=== PATIENT | male | born 1970 | race Caucasian/White ===

== ENCOUNTER 2024-03-06 17:15 | Inpatient (IN) | payer MEDICAID ==
[~2024-03-06] VITALS: Ht 167.6 cm; Wt 71.7 kg
[2024-03-06 17:19] VITALS: O2SAT 99
[2024-03-06] MEDS: PIPERACILLIN/TAZO 3.375G/50ML 50 ML IV ONE (19:04)
[2024-03-06] MEDS: SODIUM CHLORIDE 0.9% 1000ML BAG (SEPSIS BOLUS) IV ONE (19:04)
[2024-03-06 19:05] LABS: CHLORIDE 90 mEq/L (98-107); POTASSIUM 5.1 mEq/L (3.5-5.1)
[2024-03-06 19:06] LABS: CALCIUM 8.6 mg/dL (8.7-10.4); CARBON DIOXIDE 24 mEq/L (21-32)
[2024-03-06 19:07] LABS: BASOPHILS % 0.4 % (0.0-2.0); EOSINOPHILS % 0.3 % (0.0-5.0); HEMATOCRIT. 30.9 % (42.0-52.0); HEMOGLOBIN. 10.2 g/dL (14.0-18.0); LYMPHOCYTES % 13.1 % (20.0-50.0); MEAN CORPUSCULAR HEMOGLOBIN 29.3 pg (28.0-32.0); MEAN CORPUSCULAR HGB CONC 32.9 g/dL (31.0-37.0); MEAN PLATELET VOLUME 8.8 fl (7.4-10.4); MONOCYTES % 7.1 % (2.0-8.0); NEUTROPHILS % 79.1 % (40.0-76.0); PLATELET 352 x1000/uL (130-400); RED BLOOD CELL COUNT 3.47 mill/uL (4.7-6.1); RED CELL DISTRIBUTION WIDTH 12.5 % (11.6-14.6); WHITE BLOOD COUNT 11.6 x1000/uL (4.5-11.0)
[2024-03-06 19:09] LABS: INR 0.9; PROTHROMBIN TIME 10.3 sec (9.6-11.0)
[2024-03-06 19:11] LABS: CREATININE 1.3 mg/dL (0.6-1.3); UREA NITROGEN BLOOD 15 mg/dL (9-23)
[2024-03-06 19:13] LABS: ALANINE AMINOTRANSFERASE 8 IU/L (10-49); ALBUMIN 4.2 g/dL (3.2-4.8); ASPARTATE AMINOTRANSFERASE 12 IU/L (<34); BILIRUBIN TOTAL 0.4 mg/dL (0.1-1.0); PHOSPHORUS 2.2 mg/dL (2.5-4.9); PROTEIN TOTAL 7.9 g/dL (6.0-8.3)
[2024-03-06 19:17] LABS: CLARITY URINE CLEAR (CLEAR); COLOR URINE YELLOW (YELLOW); GLUCOSE URINE 3+ (NEGATIVE); KETONES URINE NEGATIVE (NEGATIVE); LEUKOCYTE ESTERASE URINE NEGATIVE (NEGATIVE); NITRITE URINE NEGATIVE (NEGATIVE); OCCULT BLOOD URINE NEGATIVE (NEGATIVE); PROTEIN URINE NEGATIVE (NEGATIVE); SPECIFIC GRAVITY URINE 1.023 (1.005-1.030); UROBILINOGEN URINE 0.2 E.U./dL (0.2-1.0)
[2024-03-06] MEDS: ONDANSETRON HCL 4MG/2ML INJ IV ONE (19:17)
[2024-03-06] MEDS: MORPHINE SULFATE 4 MG/ML INJ (FOR IV/IM USE) IV ONE (19:17)
[2024-03-06 19:20] LABS: GLUCOSE > 700 mg/dL (70-105); SODIUM 119 mEq/L (136-145)
[2024-03-06 19:34] LABS: BETA HYDROXYBUTYRATE 0.1 mMol/L (0.0-0.3)
[2024-03-06 19:40] LABS: BACTERIA URINE NONE SEEN; RBC URINE NONE SEEN /hpf (0-2); SQUAMOUS EPITHELIAL CELL URINE RARE /lpf (RARE/1+)
[2024-03-06 19:41] LABS: WBC URINE 0-2 /hpf (0-2)
[2024-03-06] MEDS ORDERED: LACTATED RINGERS 1,000 ML IV SCH ×2 (19:45)
[2024-03-06] MEDS: VANCOMYCIN 1G PREMIX 200 ML IV ONE (21:23)
[2024-03-06] MEDS: INSULIN LISPRO 100 UNITS/ML SUBCUT ONE (21:25)
[2024-03-06] MEDS: INSULIN GLARGINE 100 UNITS/ML SUBCUT ONE (21:26)
[2024-03-06] MEDS: LACTATED RINGERS 1,000 ML IV SCH ×2 (22:05→22:06)
[2024-03-06] MEDS ORDERED: DEXTROSE 50% WATER 50ML SYRINGE IV PRN (22:30)
[2024-03-06] MEDS: ASPIRIN 81MG TABLET PO SCH (23:44)
[2024-03-06] MEDS: SODIUM CHLORIDE 0.9% 1,000 ML IV SCH (23:44)
[2024-03-07 00:43] LABS: CARBON DIOXIDE 28 mEq/L (21-32); CHLORIDE 98 mEq/L (98-107); SODIUM 130 mEq/L (136-145)
[2024-03-07 00:44] LABS: CALCIUM 8.2 mg/dL (8.7-10.4)
[2024-03-07 00:49] LABS: UREA NITROGEN BLOOD 12 mg/dL (9-23)
[2024-03-07 00:51] LABS: PHOSPHORUS 2.2 mg/dL (2.5-4.9)
[2024-03-07 00:53] LABS: GLUCOSE 315 mg/dL (70-105)
[2024-03-07] MEDS: SODIUM PHOSPHATE 15 MMOL in DEXT 5% WATER 245 ML IV NR (01:08)
[2024-03-07 03:01] VITALS: BP 96/51; PULSE 86; RESP 17; TEMP 98.8
[2024-03-07 05:00] VITALS: BP 125/60; PULSE 88; RESP 20; TEMP 98
[2024-03-07] MEDS: PIPERACILLIN/TAZO 3.375G/50ML 50 ML IV SCH (06:05)
[2024-03-07] MEDS: BLOOD SUGAR DIAGNOSTIC STRIP TEST SCH (06:47)
[2024-03-07] MEDS: INSULIN LISPRO 100 UNITS/ML SUBCUT SCH ×2 (07:01→16:50)
[2024-03-07 08:00] VITALS: BP 114/68; PULSE 82; RESP 18; TEMP 98.3
[2024-03-07] MEDS ORDERED: VANCOMYCIN 1GM/200ML PMX (BAXTER) IV SCH (09:00)
[2024-03-07] MEDS: ENOXAPARIN 40MG/0.4ML SYR SUBCUT SCH (09:07)
[2024-03-07] MEDS: MAGNESIUM 2 G PREMIX 50 ML IV NR (09:24)
[2024-03-07] MEDS ORDERED: VANCOMYCIN 750MG/150ML IV SCH (10:00)
[2024-03-07] MEDS: VANCOMYCIN 1GM/200ML PMX (BAXTER) IV SCH (11:20)
[2024-03-07 11:27] LABS: OSMOLALITY URINE 447 mOsm/kg (500-850)
[2024-03-07 11:31] LABS: SODIUM URINE RANDOM 47 mEq/L
[2024-03-07 12:00] VITALS: BP 110/64; PULSE 85; RESP 18; TEMP 98.2
[2024-03-07 13:03] LABS: CARBON DIOXIDE 26 mEq/L (21-32); CHLORIDE 102 mEq/L (98-107); SODIUM 136 mEq/L (136-145)
[2024-03-07 13:04] LABS: CARBON DIOXIDE 26 mEq/L (21-32); CHLORIDE 102 mEq/L (98-107); SODIUM 135 mEq/L (136-145)
[2024-03-07 13:05] LABS: CALCIUM 8.4 mg/dL (8.7-10.4)
[2024-03-07 13:09] LABS: CREATININE 0.8 mg/dL (0.6-1.3); GLUCOSE 189 mg/dL (70-105)
[2024-03-07 13:10] LABS: CREATININE 0.8 mg/dL (0.6-1.3); GLUCOSE 189 mg/dL (70-105); UREA NITROGEN BLOOD 12 mg/dL (9-23)
[2024-03-07 13:12] LABS: PHOSPHORUS 3.4 mg/dL (2.5-4.9)
[2024-03-07 16:00] VITALS: BP 116/69; PULSE 82; RESP 18; TEMP 97.8
[2024-03-07 16:12] LABS: CHLORIDE 103 mEq/L (98-107); POTASSIUM 4.5 mEq/L (3.5-5.1); SODIUM 133 mEq/L (136-145)
[2024-03-07 16:13] LABS: CARBON DIOXIDE 24 mEq/L (21-32)
[2024-03-07 16:14] LABS: CALCIUM 8.2 mg/dL (8.7-10.4)
[2024-03-07 16:18] LABS: GLUCOSE 252 mg/dL (70-105); UREA NITROGEN BLOOD 10 mg/dL (9-23)
[2024-03-07 20:00] VITALS: BP 101/59; PULSE 95; RESP 20; TEMP 98.2
[2024-03-07 20:10] LABS: IRON 21 ug/dL (65-175)
[2024-03-07 20:15] LABS: FOLIC ACID (FOLATE) SERUM 16.14 ng/mL (>5.38)
[2024-03-07 20:16] LABS: FERRITIN 106 ng/mL (22-322); VITAMIN B12 SERUM 696 pg/mL (211-911)
[2024-03-07] MEDS: ATORVASTATIN CALCIUM 40MG TABLET PO SCH (21:13)
[2024-03-07] MEDS: INSULIN GLARGINE 100 UNITS/ML SUBCUT SCH (21:27)
[2024-03-07] MEDS ORDERED: IOHEXOL-350 100 ML BOTTLE ONE (23:51)
[2024-03-08] VITALS: BP 138/74; PULSE 86; RESP 18; TEMP 97.8
[2024-03-08] MEDS: KETOROLAC 30MG/ML VIAL IV NR (00:30)
[2024-03-08 04:00] VITALS: BP 127/69; PULSE 82; RESP 17; TEMP 97.6
[2024-03-08 12:00] VITALS: BP 121/71; PULSE 85; RESP 18; TEMP 97.3
[2024-03-08] MEDS: KETOROLAC 15MG/ML VIAL IV PRN (12:05)
[2024-03-08 16:00] VITALS: BP 116/75; PULSE 100; RESP 18; TEMP 97.8
[2024-03-08 16:28] LABS: CARBON DIOXIDE 25 mEq/L (21-32); CHLORIDE 103 mEq/L (98-107); POTASSIUM 4.8 mEq/L (3.5-5.1); SODIUM 133 mEq/L (136-145)
[2024-03-08 16:29] LABS: CALCIUM 9.8 mg/dL (8.7-10.4)
[2024-03-08 16:33] LABS: CREATININE 1.1 mg/dL (0.6-1.3)
[2024-03-08 16:34] LABS: GLUCOSE 210 mg/dL (70-105); UREA NITROGEN BLOOD 15 mg/dL (9-23)
[2024-03-08 16:35] LABS: ALANINE AMINOTRANSFERASE 10 IU/L (10-49)
[2024-03-08 16:36] LABS: ALBUMIN 3.8 g/dL (3.2-4.8); ASPARTATE AMINOTRANSFERASE 17 IU/L (<34); BILIRUBIN TOTAL 0.2 mg/dL (0.1-1.0); PROTEIN TOTAL 7.1 g/dL (6.0-8.3)
[2024-03-08 17:16] LABS: BASOPHILS % 0.8 % (0.0-2.0); HEMATOCRIT. 34.6 % (42.0-52.0); HEMOGLOBIN. 12.1 g/dL (14.0-18.0); LYMPHOCYTES % 17.5 % (20.0-50.0); MEAN CORPUSCULAR HEMOGLOBIN 30.5 pg (28.0-32.0); MEAN CORPUSCULAR HGB CONC 35.1 g/dL (31.0-37.0); MEAN CORPUSCULAR VOLUME 86.9 fL (80.0-94.0); MEAN PLATELET VOLUME 8.6 fl (7.4-10.4); MONOCYTES % 4.3 % (2.0-8.0); NEUTROPHILS % 76.4 % (40.0-76.0); PLATELET 421 x1000/uL (130-400); RED BLOOD CELL COUNT 3.98 mill/uL (4.7-6.1); RED CELL DISTRIBUTION WIDTH 12.5 % (11.6-14.6); WHITE BLOOD COUNT 8.8 x1000/uL (4.5-11.0)
[2024-03-08] MEDS: SODIUM HYPOCHLORITE SOLUTION (0.5%)FULL STRENGTH TOP SCH (18:00)
[2024-03-08 20:00] VITALS: BP 150/80; PULSE 88; RESP 18; TEMP 98
[2024-03-08] MEDS: INSULIN GLARGINE 100 UNITS/ML SUBCUT SCH (21:38)
[2024-03-09] VITALS: BP 132/71; PULSE 92; RESP 20; TEMP 97.1
[2024-03-09 04:00] VITALS: BP 102/58; PULSE 85; RESP 19; TEMP 98.1
[2024-03-09 08:00] VITALS: BP 118/76; PULSE 89; RESP 20; TEMP 99
[2024-03-09] MEDS ORDERED: FENTANYL CITRATE/PF 50MCG/ML 2ML VIAL ONE (11:44)
[2024-03-09] MEDS ORDERED: MIDAZOLAM HCL 2 MG/2 ML VIAL ONE (11:44)
[2024-03-09] MEDS ORDERED: HEPARIN 1000 UNITS/ML 10ML ONE (11:49)
[2024-03-09] MEDS ORDERED: LIDOCAINE HCL/PF 1% 10 MG/ML 5ML VIAL ONE (11:52)
[2024-03-09 12:10] LABS: HEMATOCRIT 28.9 % (42.0-52.0); HEMOGLOBIN 10.1 g/dL (14.0-18.0); MEAN CORPUSCULAR HEMOGLOBIN 30.8 pg (28.0-32.0); PLATELET 440 x1000/uL (130-400); RED BLOOD CELL COUNT 3.28 mill/uL (4.7-6.1); RED CELL DISTRIBUTION WIDTH 12.5 % (11.6-14.6); WHITE BLOOD COUNT 8.1 x1000/uL (4.5-11.0)
[2024-03-09 12:14] LABS: CHLORIDE 104 mEq/L (98-107); POTASSIUM 4.3 mEq/L (3.5-5.1); SODIUM 136 mEq/L (136-145)
[2024-03-09 12:15] LABS: CALCIUM 9.5 mg/dL (8.7-10.4); CARBON DIOXIDE 27 mEq/L (21-32)
[2024-03-09 12:20] LABS: CREATININE 0.8 mg/dL (0.6-1.3); GLUCOSE 122 mg/dL (70-105); UREA NITROGEN BLOOD 13 mg/dL (9-23)
[2024-03-09] MEDS ORDERED: LIDOCAINE HCL 1% 20ML VIAL (Pyxis) INJ ONE (12:40)
[2024-03-09 14:00] VITALS: BP 114/73; PULSE 85; RESP 20; TEMP 97.7
[2024-03-09] MEDS: ACETAMINOPHEN 325MG TABLET PO PRN (15:00)
[2024-03-09 20:00] VITALS: BP 131/75; PULSE 91; RESP 18; TEMP 97.5
[2024-03-10] VITALS: BP 110/70; PULSE 89; RESP 17; TEMP 97.7
[2024-03-10 04:00] VITALS: BP 143/82; PULSE 87; RESP 18; TEMP 97.9
[2024-03-10 08:00] VITALS: BP 114/57; PULSE 78; RESP 20; TEMP 97.8
[2024-03-10 12:00] VITALS: BP 130/74; PULSE 83; RESP 20; TEMP 98.2
[2024-03-10 16:00] VITALS: BP 142/78; PULSE 85; RESP 20; TEMP 98.2
[2024-03-10 20:00] VITALS: BP 137/72; PULSE 82; RESP 20; TEMP 98.6
[2024-03-11] VITALS: BP 127/68; PULSE 79; RESP 20; TEMP 98.2
[2024-03-11 04:00] VITALS: BP 132/76; PULSE 80; RESP 20; TEMP 98
[2024-03-11 08:00] VITALS: BP 121/76; PULSE 76; RESP 18; TEMP 97.9
[2024-03-11 12:00] VITALS: BP 113/71; PULSE 81; RESP 20; TEMP 98.1
[2024-03-11 16:00] VITALS: BP 116/75; PULSE 90; RESP 18; TEMP 97.7
[2024-03-11 20:00] VITALS: BP 124/73; PULSE 95; RESP 20; TEMP 98.6
[2024-03-12] VITALS: BP 129/76; PULSE 98; RESP 20; TEMP 98.2
[2024-03-12 04:00] VITALS: BP 113/63; PULSE 87; RESP 19; TEMP 97.8
[2024-03-12 06:17] LABS: BASOPHILS % 0.6 % (0.0-2.0); EOSINOPHILS % 1.6 % (0.0-5.0); HEMATOCRIT. 27.5 % (42.0-52.0); HEMOGLOBIN. 9.6 g/dL (14.0-18.0); LYMPHOCYTES % 22.2 % (20.0-50.0); MEAN CORPUSCULAR HEMOGLOBIN 30.2 pg (28.0-32.0); MEAN CORPUSCULAR VOLUME 86.2 fL (80.0-94.0); MEAN PLATELET VOLUME 7.7 fl (7.4-10.4); MONOCYTES % 8.3 % (2.0-8.0); NEUTROPHILS % 67.3 % (40.0-76.0); PLATELET 411 x1000/uL (130-400); RED CELL DISTRIBUTION WIDTH 12.2 % (11.6-14.6); WHITE BLOOD COUNT 8.7 x1000/uL (4.5-11.0)
[2024-03-12 06:30] LABS: CHLORIDE 103 mEq/L (98-107); POTASSIUM 4.3 mEq/L (3.5-5.1); SODIUM 136 mEq/L (136-145)
[2024-03-12 06:32] LABS: CARBON DIOXIDE 26 mEq/L (21-32)
[2024-03-12 06:33] LABS: CALCIUM 9.3 mg/dL (8.7-10.4)
[2024-03-12 06:37] LABS: CREATININE 1.1 mg/dL (0.6-1.3)
[2024-03-12 06:38] LABS: GLUCOSE 239 mg/dL (70-105); UREA NITROGEN BLOOD 15 mg/dL (9-23)
[2024-03-12 06:39] LABS: ALANINE AMINOTRANSFERASE 12 IU/L (10-49); ALBUMIN 3.7 g/dL (3.2-4.8); ASPARTATE AMINOTRANSFERASE 17 IU/L (<34)
[2024-03-12 06:40] LABS: BILIRUBIN TOTAL 0.2 mg/dL (0.1-1.0); PROTEIN TOTAL 6.7 g/dL (6.0-8.3)
[2024-03-12 08:00] VITALS: BP 108/54; PULSE 86; TEMP 98
[2024-03-12] MEDS ORDERED: INSU100I28 SQ ×2 (10:27→10:53)
[2024-03-12] MEDS ORDERED: AMOX1TAB16 MT (10:27)
[2024-03-12] MEDS ORDERED: DAKI TOP (10:27)
[2024-03-12] MEDS ORDERED: ASPI-1160 PO (10:27)
[2024-03-12] MEDS ORDERED: ASCO500T19 PO (10:27)
[2024-03-12] MEDS ORDERED: INSU100I53 SQ ×2 (10:27→10:53)
[2024-03-12] MEDS ORDERED: LIP40 PO (10:27)
[2024-03-12] MEDS ORDERED: ZINC11TA PO (10:27)
[2024-03-12] MEDS ORDERED: ZINC220T3 PO (10:53)
[2024-03-12 12:00] VITALS: BP 103/58; PULSE 91; RESP 20; TEMP 99.8
== END 2024-03-12 16:10 | disposition home or self-care (01) | DRG 720 ==
LOC: ER 17:15 → EDBEDREQ 18:53 → 8WST 21:33 → EDBEDREQTM 21:45 → EDBEDREQSVC 21:45 → EDBEDREQ 21:45 → EDBEDREQSVC 03-07 01:13
PROVIDERS: ADMIT Internal Medicine; ATTEND Internal Medicine
PROC: B41G1ZZ Fluoroscopy of Left Lower Extremity Arteries using Low Osmolar Contrast (ICD-10-PCS; principal; 2024-03-09)
DX: A41.9 Sepsis, unspecified organism (principal); E11.00 Type 2 diabetes mellitus with hyperosmolarity without nonketotic hyperglycemic-hyperosmolar coma (NKHHC); E11.52 Type 2 diabetes mellitus with diabetic peripheral angiopathy with gangrene; E11.621 Type 2 diabetes mellitus with foot ulcer; E83.39 Other disorders of phosphorus metabolism; D64.9 Anemia, unspecified; E87.1 Hypo-osmolality and hyponatremia; L89.890 Pressure ulcer of other site, unstageable; E11.628 Type 2 diabetes mellitus with other skin complications; E11.65 Type 2 diabetes mellitus with hyperglycemia; E78.5 Hyperlipidemia, unspecified; L08.9 Local infection of the skin and subcutaneous tissue, unspecified; M79.674 Pain in right toe(s); M79.675 Pain in left toe(s); S90.821A Blister (nonthermal), right foot, initial encounter; X58.XXXA Exposure to other specified factors, initial encounter; E78.1 Pure hyperglyceridemia; G44.209 Tension-type headache, unspecified, not intractable; E83.42 Hypomagnesemia; E86.0 Dehydration; M19.90 Unspecified osteoarthritis, unspecified site; Z79.4 Long term (current) use of insulin; Z89.429 Acquired absence of other toe(s), unspecified side; Z91.148 Patient's other noncompliance with medication regimen for other reason; Z91.199 Patient's noncompliance with other medical treatment and regimen due to unspecified reason; Y93.89 Activity, other specified; Y92.89 Other specified places as the place of occurrence of the external cause; Y99.8 Other external cause status
CPT/HCPCS: 36246; 36415; 71045; 73630; 75635; 75710; 80048; 80053; 80061; 80202; 81003; 82010; 82607; 82728; 82746; 82962; 83036; 83540; 83605; 83735; 83930; 83935; 84100; 84145; 84300; 85025; 85027; 85651; 86850; 86900; 87070; 87075; 87077; 93005; 93923; 93970; 99291; C1769; C1893; J1644; J1650; J1815; J1885; J2250; J2270; J2405; J2543; J3010; J3370; J3475; J3490; J7030; J7060; Q9967

== ENCOUNTER 2024-03-25 17:31 | Inpatient (IN) | payer OTHER, MEDICAID ==
[~2024-03-25] VITALS: Ht 172.7 cm; Wt 74.8 kg
[~2024-03-25 17:31] MED LIST: AMOX1TAB16 MT; ASCO500T19 PO; ASPI-1160 PO; INSU100I28 SQ; INSU100I53 SQ; LIP40 PO; ZINC220T3 PO
[2024-03-25 18:25] LABS: BASOPHILS % 0.4 % (0.0-2.0); EOSINOPHILS % 0.4 % (0.0-5.0); HEMATOCRIT. 29.9 % (42.0-52.0); HEMOGLOBIN. 9.9 g/dL (14.0-18.0); LYMPHOCYTES % 9.3 % (20.0-50.0); MEAN CORPUSCULAR HEMOGLOBIN 29.7 pg (28.0-32.0); MEAN CORPUSCULAR VOLUME 90.2 fL (80.0-94.0); MEAN PLATELET VOLUME 7.8 fl (7.4-10.4); MONOCYTES % 6.3 % (2.0-8.0); NEUTROPHILS % 83.6 % (40.0-76.0); PLATELET 410 x1000/uL (130-400); RED BLOOD CELL COUNT 3.32 mill/uL (4.7-6.1); RED CELL DISTRIBUTION WIDTH 12.1 % (11.6-14.6); WHITE BLOOD COUNT 12.6 x1000/uL (4.5-11.0)
[2024-03-25 18:31] LABS: CHLORIDE 96 mEq/L (98-107); POTASSIUM 4.7 mEq/L (3.5-5.1); SODIUM 129 mEq/L (136-145)
[2024-03-25 18:32] LABS: CALCIUM 9.4 mg/dL (8.7-10.4); CARBON DIOXIDE 26 mEq/L (21-32)
[2024-03-25 18:36] LABS: PROTHROMBIN TIME 11.4 sec (9.6-11.0)
[2024-03-25 18:37] LABS: CREATININE 1.1 mg/dL (0.6-1.3); UREA NITROGEN BLOOD 19 mg/dL (9-23)
[2024-03-25] MEDS: PIPERACILLIN/TAZO 3.375G/50ML 50 ML IV ONE (18:38)
[2024-03-25 18:39] LABS: CREATINE KINASE 54 IU/L (46-171)
[2024-03-25] MEDS: MORPHINE SULFATE 4 MG/ML INJ (FOR IV/IM USE) IV STA (18:39)
[2024-03-25] MEDS: ONDANSETRON HCL 4MG/2ML INJ IV STA (18:39)
[2024-03-25] MEDS: SODIUM CHLORIDE 0.9% 1000ML BAG (SEPSIS BOLUS) IV ONE (18:40)
[2024-03-25 18:42] LABS: GLUCOSE 492 mg/dL (70-105)
[2024-03-25] MEDS: VANCOMYCIN 1G PREMIX 200 ML IV ONE (19:43)
[2024-03-25 19:53] LABS: CLARITY URINE CLEAR (CLEAR); COLOR URINE YELLOW (YELLOW); GLUCOSE URINE 3+ (NEGATIVE); KETONES URINE 1+ (NEGATIVE); LEUKOCYTE ESTERASE URINE NEGATIVE (NEGATIVE); NITRITE URINE NEGATIVE (NEGATIVE); OCCULT BLOOD URINE NEGATIVE (NEGATIVE); PH URINE 6.5 (4.5-8.0); PROTEIN URINE TRACE (NEGATIVE); SPECIFIC GRAVITY URINE 1.027 (1.005-1.030)
[2024-03-25 20:08] LABS: BACTERIA URINE NONE SEEN; RBC URINE NONE SEEN /hpf (0-2); SQUAMOUS EPITHELIAL CELL URINE RARE /lpf (RARE/1+); WBC URINE NONE SEEN /hpf (0-2)
[2024-03-25] MEDS: POTASSIUM CHLORIDE 20MEQ/PACKET PO NR (21:15)
[2024-03-25] MEDS: IOHEXOL-300 100 ML BOTTLE ONE (21:54)
[2024-03-25] MEDS: SODIUM CHLORIDE 0.9% 1,000 ML IV ONE (22:22)
[2024-03-25] MEDS: MORPHINE SULFATE 4 MG/ML INJ (FOR IV/IM USE) IV NR (22:22)
[2024-03-25] MEDS: INSULIN REGULAR (HUMULIN R) 300UNITS/3ML VIAL SUBCUT NR (22:27)
[2024-03-25] MEDS ORDERED: MAGNESIUM/ALUMINUM HYDROXIDE/SIMETHICONE 30ML UDC PO PRN (23:30)
[2024-03-25] MEDS ORDERED: ACETAMINOPHEN 325MG TABLET PO PRN ×2 (23:30)
[2024-03-25] MEDS ORDERED: IPRATROPIUM/ALBUTEROL 0.5-3(2.5)MG/3ML NEB HHN PRN (23:30)
[2024-03-25] MEDS ORDERED: ONDANSETRON HCL 4MG/2ML INJ IV PRN (23:30)
[2024-03-25] MEDS ORDERED: DOCUSATE SODIUM 100MG CAPSULE PO PRN (23:30)
[2024-03-25] MEDS ORDERED: CLONIDINE 0.1MG TABLET PO PRN (23:30)
[2024-03-25] MEDS ORDERED: GUAIFENESIN 200MG/10ML SUGAR FREE UDC PO PRN (23:30)
[2024-03-25] MEDS ORDERED: DEXTROSE 50% WATER 50ML SYRINGE IV PRN (23:30)
[2024-03-26 06:38] LABS: CALCIUM 9.2 mg/dL (8.7-10.4); CARBON DIOXIDE 26 mEq/L (21-32); CHLORIDE 105 mEq/L (98-107); POTASSIUM 4.2 mEq/L (3.5-5.1); SODIUM 136 mEq/L (136-145)
[2024-03-26] MEDS: PIPERACILLIN/TAZOBACTAM 3.375 G in DEXTROSE 5% WATER 50 ML IV SCH (06:38)
[2024-03-26] MEDS: PANTOPRAZOLE 40MG DR TABLET PO SCH (06:39)
[2024-03-26 06:44] LABS: CREATININE 0.8 mg/dL (0.6-1.3); THYROID STIMULATING HORMONE 1.86 uIU/mL (0.55-4.78); UREA NITROGEN BLOOD 13 mg/dL (9-23)
[2024-03-26 07:01] LABS: GLUCOSE 246 mg/dL (70-105)
[2024-03-26 07:17] LABS: HEMATOCRIT. 27.2 % (42.0-52.0); HEMOGLOBIN. 9.4 g/dL (14.0-18.0); MEAN CORPUSCULAR HEMOGLOBIN 29.3 pg (28.0-32.0); MEAN CORPUSCULAR HGB CONC 34.4 g/dL (31.0-37.0); MEAN CORPUSCULAR VOLUME 85.1 fL (80.0-94.0); PLATELET 399 x1000/uL (130-400); RED BLOOD CELL COUNT 3.19 mill/uL (4.7-6.1); RED CELL DISTRIBUTION WIDTH 12.2 % (11.6-14.6); WHITE BLOOD COUNT 10.5 x1000/uL (4.5-11.0)
[2024-03-26 07:42] LABS: DIFFERENTIAL COMMENT 1
[2024-03-26] MEDS ORDERED: VANCOMYCIN 1GM/200ML PMX (BAXTER) IV SCH (08:00)
[2024-03-26] MEDS: INSULIN LISPRO 100 UNITS/ML SUBCUT SCH (08:30)
[2024-03-26 08:32] LABS: PLATELET ESTIMATE NORMAL
[2024-03-26] MEDS: ENOXAPARIN 40MG/0.4ML SYR SUBCUT SCH (09:48)
[2024-03-26] MEDS: MULTIVITAMINS,THER W-MINERALS TABLET PO SCH (09:48)
[2024-03-26 10:28] VITALS: BP 117/72; PULSE 85; RESP 18; TEMP 98.4
[2024-03-26] MEDS: HYDROCODONE/ACETAMINOPHEN 5/325MG TABLET PO PRN (11:47)
[2024-03-26] MEDS: VANCOMYCIN 1GM/200ML PMX (BAXTER) IV SCH (11:47)
[2024-03-26] MEDS: BLOOD SUGAR DIAGNOSTIC STRIP TEST SCH (11:52)
[2024-03-26 12:00] VITALS: BP 114/67; PULSE 85; RESP 20; TEMP 99.6
[2024-03-26] MEDS ORDERED: NALOXONE HCL 0.4MG/ML VIAL IV PRN (14:45)
[2024-03-26] MEDS: PIPERACILLIN/TAZO 3.375G/50ML IV SCH (14:46)
[2024-03-26 18:01] LABS: T4 FREE 1.04 ng/dL (0.89-1.76)
[2024-03-27 08:00] VITALS: BP 137/83; PULSE 95; RESP 18; TEMP 99.7
[2024-03-27 09:47] LABS: BASOPHILS % 0.5 % (0.0-2.0); EOSINOPHILS % 0.8 % (0.0-5.0); HEMATOCRIT. 27.4 % (42.0-52.0); HEMOGLOBIN. 9.5 g/dL (14.0-18.0); LYMPHOCYTES % 13.7 % (20.0-50.0); MEAN CORPUSCULAR HEMOGLOBIN 29.4 pg (28.0-32.0); MEAN CORPUSCULAR HGB CONC 34.6 g/dL (31.0-37.0); MEAN CORPUSCULAR VOLUME 85.1 fL (80.0-94.0); MEAN PLATELET VOLUME 7.9 fl (7.4-10.4); MONOCYTES % 7.4 % (2.0-8.0); NEUTROPHILS % 77.6 % (40.0-76.0); PLATELET 411 x1000/uL (130-400); RED BLOOD CELL COUNT 3.22 mill/uL (4.7-6.1); RED CELL DISTRIBUTION WIDTH 12.5 % (11.6-14.6); WHITE BLOOD COUNT 12.1 x1000/uL (4.5-11.0)
[2024-03-27 10:03] LABS: CALCIUM 9.1 mg/dL (8.7-10.4); CARBON DIOXIDE 25 mEq/L (21-32); CHLORIDE 98 mEq/L (98-107); POTASSIUM 4.3 mEq/L (3.5-5.1); SODIUM 131 mEq/L (136-145)
[2024-03-27 10:07] LABS: CREATININE 0.8 mg/dL (0.6-1.3); GLUCOSE 363 mg/dL (70-105)
[2024-03-27 10:09] LABS: UREA NITROGEN BLOOD 10 mg/dL (9-23)
[2024-03-27 10:10] LABS: PHOSPHORUS 2.8 mg/dL (2.5-4.9)
[2024-03-27 10:11] LABS: TROPONIN I HIGH SENSITIVITY < 4 ng/L (3.0-53)
[2024-03-27 12:00] VITALS: BP 115/55; PULSE 85; RESP 18; TEMP 97.1
[2024-03-27 16:00] VITALS: BP 119/69; PULSE 86; RESP 18; TEMP 97.9
[2024-03-27 16:19] LABS: TROPONIN I HIGH SENSITIVITY < 4 ng/L (3.0-53)
[2024-03-27] MEDS: VANCOMYCIN 1.25GM PMX (XELLIA) 250 ML IV SCH (17:27)
[2024-03-27 20:00] VITALS: BP 137/82; PULSE 80; RESP 20; TEMP 97.7
[2024-03-27] MEDS: INSULIN GLARGINE 100 UNITS/ML SUBCUT SCH (21:52)
[2024-03-27] MEDS: HYDROCODONE/ACETAMINOPHEN 5/325MG TABLET PO PRN (22:01)
[2024-03-28] VITALS: BP 111/64; PULSE 85; RESP 20; TEMP 97.5
[2024-03-28 04:00] VITALS: BP 118/67; PULSE 85; RESP 20; TEMP 97.6
[2024-03-28 05:52] LABS: CARBON DIOXIDE 26 mEq/L (21-32); CHLORIDE 99 mEq/L (98-107); POTASSIUM 4.2 mEq/L (3.5-5.1); SODIUM 131 mEq/L (136-145)
[2024-03-28 05:53] LABS: CALCIUM 8.7 mg/dL (8.7-10.4)
[2024-03-28 05:57] LABS: BASOPHILS % 0.4 % (0.0-2.0); CREATININE 0.9 mg/dL (0.6-1.3); HEMATOCRIT. 25.4 % (42.0-52.0); HEMOGLOBIN. 8.8 g/dL (14.0-18.0); MEAN CORPUSCULAR HEMOGLOBIN 28.9 pg (28.0-32.0); MEAN CORPUSCULAR HGB CONC 34.5 g/dL (31.0-37.0); MEAN CORPUSCULAR VOLUME 83.8 fL (80.0-94.0); MEAN PLATELET VOLUME 8.1 fl (7.4-10.4); MONOCYTES % 7.9 % (2.0-8.0); NEUTROPHILS % 72.7 % (40.0-76.0); PLATELET 372 x1000/uL (130-400); RED BLOOD CELL COUNT 3.03 mill/uL (4.7-6.1); RED CELL DISTRIBUTION WIDTH 12.4 % (11.6-14.6)
[2024-03-28 05:58] LABS: GLUCOSE 302 mg/dL (70-105); UREA NITROGEN BLOOD 11 mg/dL (9-23)
[2024-03-28 06:00] LABS: PHOSPHORUS 3.5 mg/dL (2.5-4.9)
[2024-03-28 08:00] VITALS: BP 118/70; PULSE 90; RESP 18; RESP 20; TEMP 98.1
[2024-03-28] MEDS: INSULIN LISPRO 100 UNITS/ML SUBCUT SCH (08:26)
[2024-03-28] MEDS: INSULIN GLARGINE 100 UNITS/ML SUBCUT NR (08:27)
[2024-03-28] MEDS: FAMOTIDINE 20MG TABLET PO SCH (08:40)
[2024-03-28 12:00] VITALS: BP 122/76; PULSE 81; RESP 18; RESP 20; TEMP 99
[2024-03-28 16:00] VITALS: BP 140/81; PULSE 89; RESP 18; RESP 20; TEMP 98.1
[2024-03-28 20:00] VITALS: BP 141/76; PULSE 100; RESP 19; TEMP 97.2
[2024-03-28] MEDS: INSULIN GLARGINE 100 UNITS/ML SUBCUT SCH (21:21)
[2024-03-29] VITALS: BP 136/82; PULSE 75; RESP 19; TEMP 98.2
[2024-03-29 04:00] VITALS: BP 140/72; PULSE 70; RESP 20; TEMP 97.4
[2024-03-29] MEDS ORDERED: LIDOCAINE HCL 1% 10 MG/ML 10ML VIAL ONE (06:47)
[2024-03-29] MEDS ORDERED: BUPIVACAINE HCL/PF 0.5% (5MG/ML) 10ML ONE ×2 (06:47→08:31)
[2024-03-29] MEDS ORDERED: DEXAMETHASONE 4MG/ML 1ML VIAL ONE (07:26)
[2024-03-29] MEDS ORDERED: PROPOFOL 200MG/20ML VIAL IV ONE (07:26)
[2024-03-29] MEDS ORDERED: FENTANYL CITRATE/PF 50MCG/ML 2ML VIAL ONE (07:26)
[2024-03-29] MEDS ORDERED: LIDOCAINE HCL/PF 1% 10 MG/ML 5ML VIAL ONE (07:26)
[2024-03-29] MEDS ORDERED: ONDANSETRON HCL 4MG/2ML INJ ONE (07:26)
[2024-03-29] MEDS ORDERED: MIDAZOLAM HCL 2 MG/2 ML VIAL ONE (07:29)
[2024-03-29] MEDS ORDERED: POLYMYXIN B SULFATE 500000 UNITS/VIAL ONE (08:06)
[2024-03-29] MEDS ORDERED: FENTANYL CITRATE/PF 50MCG/ML 2ML VIAL IV PRN (08:30)
[2024-03-29] MEDS ORDERED: ONDANSETRON HCL 4MG/2ML INJ IV PRN (08:30)
[2024-03-29] MEDS ORDERED: HYDROMORPHONE HCL/PF 2MG/ML CPJ IV PRN (08:30)
[2024-03-29 10:27] VITALS: BP 139/79; PULSE 82; RESP 18; TEMP 98.6
[2024-03-29 16:00] VITALS: BP 143/82; PULSE 9; PULSE 91; RESP 20; TEMP 97.9
[2024-03-29 16:21] LABS: CHLORIDE 98 mEq/L (98-107); POTASSIUM 4.9 mEq/L (3.5-5.1); SODIUM 128 mEq/L (136-145)
[2024-03-29 16:22] LABS: CARBON DIOXIDE 24 mEq/L (21-32); HEMATOCRIT. 28.6 % (42.0-52.0); HEMOGLOBIN. 9.3 g/dL (14.0-18.0); MEAN CORPUSCULAR HGB CONC 32.6 g/dL (31.0-37.0); MEAN PLATELET VOLUME 8.2 fl (7.4-10.4); PLATELET 417 x1000/uL (130-400); RED BLOOD CELL COUNT 3.21 mill/uL (4.7-6.1); RED CELL DISTRIBUTION WIDTH 12.4 % (11.6-14.6); WHITE BLOOD COUNT 14.6 x1000/uL (4.5-11.0)
[2024-03-29 16:23] LABS: CALCIUM 8.9 mg/dL (8.7-10.4); DIFFERENTIAL COMMENT 1
[2024-03-29 16:28] LABS: UREA NITROGEN BLOOD 16 mg/dL (9-23)
[2024-03-29 16:30] LABS: PHOSPHORUS 2.4 mg/dL (2.5-4.9)
[2024-03-29 16:49] LABS: GLUCOSE 607 mg/dL (70-105)
[2024-03-29 17:03] LABS: PLATELET ESTIMATE INCREASED
[2024-03-29 20:00] VITALS: BP 127/71; PULSE 87; RESP 21; TEMP 98.1
[2024-03-30] VITALS: BP 131/77; PULSE 86; RESP 18; TEMP 97.9
[2024-03-30] MEDS: MORPHINE SULFATE 2 MG/ML CPJ (NOT FOR IM USE) IV PRN (01:00)
[2024-03-30 04:00] VITALS: BP 114/72; PULSE 86; RESP 20; TEMP 97.8
[2024-03-30 07:18] LABS: CARBON DIOXIDE 23 mEq/L (21-32); CHLORIDE 100 mEq/L (98-107); POTASSIUM 4.4 mEq/L (3.5-5.1); SODIUM 131 mEq/L (136-145)
[2024-03-30 07:24] LABS: UREA NITROGEN BLOOD 15 mg/dL (9-23)
[2024-03-30 07:27] LABS: PHOSPHORUS 2.8 mg/dL (2.5-4.9)
[2024-03-30 07:54] LABS: BASOPHILS % 0.2 % (0.0-2.0); EOSINOPHILS % 0.4 % (0.0-5.0); HEMATOCRIT. 24.8 % (42.0-52.0); HEMOGLOBIN. 8.4 g/dL (14.0-18.0); LYMPHOCYTES % 12.2 % (20.0-50.0); MEAN CORPUSCULAR HEMOGLOBIN 28.9 pg (28.0-32.0); MEAN CORPUSCULAR HGB CONC 33.8 g/dL (31.0-37.0); MEAN CORPUSCULAR VOLUME 85.5 fL (80.0-94.0); MEAN PLATELET VOLUME 8.3 fl (7.4-10.4); MONOCYTES % 6.4 % (2.0-8.0); NEUTROPHILS % 80.8 % (40.0-76.0); PLATELET 403 x1000/uL (130-400); RED CELL DISTRIBUTION WIDTH 12.3 % (11.6-14.6); WHITE BLOOD COUNT 15.5 x1000/uL (4.5-11.0)
[2024-03-30 08:00] VITALS: BP 148/73; PULSE 83; RESP 18; TEMP 97.5
[2024-03-30 08:15] LABS: GLUCOSE 425 mg/dL (70-105)
[2024-03-30] MEDS: PANTOT AC/MIN OIL/PET HY-PHL OINT (AQUAPHOR) TOP SCH (09:40)
[2024-03-30] MEDS: INSULIN GLARGINE 100 UNITS/ML SUBCUT SCH (21:57)
[2024-03-31] VITALS: BP 127/73; PULSE 89; RESP 20; TEMP 98.2
[2024-03-31 04:00] VITALS: BP 137/82; PULSE 87; RESP 20; TEMP 98.1
[2024-03-31 06:30] LABS: HEMATOCRIT. 25.8 % (42.0-52.0); HEMOGLOBIN. 8.8 g/dL (14.0-18.0); MEAN CORPUSCULAR HEMOGLOBIN 29.1 pg (28.0-32.0); MEAN CORPUSCULAR HGB CONC 34.2 g/dL (31.0-37.0); MEAN CORPUSCULAR VOLUME 85.1 fL (80.0-94.0); MEAN PLATELET VOLUME 8.1 fl (7.4-10.4); PLATELET 450 x1000/uL (130-400); RED BLOOD CELL COUNT 3.04 mill/uL (4.7-6.1); RED CELL DISTRIBUTION WIDTH 12.5 % (11.6-14.6); WHITE BLOOD COUNT 10.4 x1000/uL (4.5-11.0)
[2024-03-31 06:47] LABS: DIFFERENTIAL COMMENT 1
[2024-03-31 07:05] LABS: CALCIUM 8.9 mg/dL (8.7-10.4); CARBON DIOXIDE 28 mEq/L (21-32); CHLORIDE 102 mEq/L (98-107); POTASSIUM 4.1 mEq/L (3.5-5.1); SODIUM 137 mEq/L (136-145)
[2024-03-31 07:10] LABS: CREATININE 0.8 mg/dL (0.6-1.3); VANCOMYCIN TROUGH 15.6 ug/mL (5.0-10.0)
[2024-03-31 07:12] LABS: UREA NITROGEN BLOOD 15 mg/dL (9-23)
[2024-03-31 07:14] LABS: GLUCOSE 178 mg/dL (70-105)
[2024-03-31] MEDS: INSULIN LISPRO 100 UNITS/ML SUBCUT SCH (08:56)
[2024-03-31 12:00] VITALS: BP 113/59; PULSE 60; RESP 20; TEMP 98.2
[2024-03-31 15:47] LABS: PLATELET ESTIMATE SLIGHTLY INCREASED
[2024-03-31 16:00] VITALS: BP 125/79; PULSE 93; RESP 19; TEMP 98.2
[2024-03-31 20:31] VITALS: BP 133/77; PULSE 96; RESP 18; TEMP 98.8
[2024-04-01 00:24] VITALS: BP 123/80; PULSE 100; RESP 18; TEMP 98.2
[2024-04-01 00:26] VITALS: BP 129/73; PULSE 92; RESP 18; TEMP 98.8
[2024-04-01 04:27] VITALS: BP 123/73; PULSE 88; RESP 18; TEMP 97.8
[2024-04-01 08:00] VITALS: BP 105/64; PULSE 92; RESP 20; TEMP 97.9
[2024-04-01 16:00] VITALS: BP 90/52; PULSE 91; RESP 20; TEMP 97.8
[2024-04-01] MEDS: HYDROCODONE/ACETAMINOPHEN 7.5/325MG TABLET PO PRN (18:29)
[2024-04-01 20:00] VITALS: BP 133/88; PULSE 88; RESP 20; TEMP 98
[2024-04-02] VITALS: BP 124/78; PULSE 89; RESP 18; TEMP 97.8
[2024-04-02 04:00] VITALS: BP 131/73; PULSE 90; RESP 20; TEMP 97.6
[2024-04-02 08:00] VITALS: BP 100/72; PULSE 105; RESP 20; TEMP 98
[2024-04-02 12:00] VITALS: BP 105/60; PULSE 89; RESP 20; TEMP 97.6
[2024-04-02] MEDS ORDERED: NALOXONE HCL 0.4MG/ML VIAL IV PRN (15:45)
[2024-04-02 16:00] VITALS: BP 140/76; PULSE 90; RESP 20; TEMP 98.8
[2024-04-02 20:00] VITALS: BP 119/66; PULSE 98; RESP 19; TEMP 98.6
[2024-04-02] MEDS ORDERED: DAPTOMYCIN 600 MG in SODIUM CHLORIDE 0.9% 50 ML IV SCH (21:30)
[2024-04-02] MEDS ORDERED: SODIUM CHLORIDE 0.9% IV SCH (22:00)
[2024-04-02] MEDS ORDERED: DAPTOMYCIN IV SCH (22:00)
[2024-04-03] VITALS: BP 121/76; PULSE 94; RESP 19; TEMP 98.7
[2024-04-03 04:00] VITALS: BP 118/78; PULSE 96; RESP 19; TEMP 97.8
[2024-04-03 08:00] VITALS: BP 120/66; PULSE 88; RESP 20; TEMP 98.2
[2024-04-03 12:00] VITALS: BP 134/79; PULSE 84; RESP 21; TEMP 97.3
[2024-04-03] MEDS ORDERED: MINE50OI TP (14:18)
[2024-04-03] MEDS ORDERED: LINE600T14 PO (14:18)
[2024-04-03] MEDS ORDERED: CIPR750T4 PO (14:18)
[2024-04-03] MEDS ORDERED: COLL30OI TP (14:18)
[2024-04-03 15:15] VITALS: BP 134/79; PULSE 84; TEMP 99; O2SAT 99
[2024-04-03] MEDS ORDERED: DAPTOMYCIN 700 MG in SODIUM CHLORIDE 0.9% 100 ML IV SCH (16:00)
== END 2024-04-03 17:34 | disposition home health service (06) | DRG 710 ==
LOC: ER 17:31 → 5WST 21:45 → EDBEDREQTM 21:47 → EDBEDREQ 21:47 → 8WST 03-26 09:00 → 6EST 04-02 15:18
PROVIDERS: ADMIT Internal Medicine; ATTEND Internal Medicine
PROC: 0Y6N0ZF Detachment at Left Foot, Partial 5th Ray, Open Approach (ICD-10-PCS; principal; 2024-03-29)
DX: A41.9 Sepsis, unspecified organism (principal); E11.10 Type 2 diabetes mellitus with ketoacidosis without coma; E11.52 Type 2 diabetes mellitus with diabetic peripheral angiopathy with gangrene; E87.1 Hypo-osmolality and hyponatremia; D63.8 Anemia in other chronic diseases classified elsewhere; L03.116 Cellulitis of left lower limb; E11.69 Type 2 diabetes mellitus with other specified complication; M17.0 Bilateral primary osteoarthritis of knee; E78.5 Hyperlipidemia, unspecified; L85.3 Xerosis cutis; M86.8X7 Other osteomyelitis, ankle and foot; Z79.4 Long term (current) use of insulin; Z79.899 Other long term (current) drug therapy; Z89.429 Acquired absence of other toe(s), unspecified side; Z91.148 Patient's other noncompliance with medication regimen for other reason; Z89.422 Acquired absence of other left toe(s); Z89.421 Acquired absence of other right toe(s)
CPT/HCPCS: 36415; 71045; 73630; 73702; 80048; 80061; 80202; 81003; 82010; 82550; 82962; 83036; 83605; 83735; 83880; 84100; 84145; 84439; 84443; 84484; 85025; 85651; 86850; 86900; 87070; 87075; 87077; 87186; 88304; 88311; 93005; 93306; 97162; 99285; J0878; J1100; J1650; J1815; J2250; J2270; J2405; J2543; J2704; J3010; J3370; J3490; J7030; J7050; J7060; Q9967

== ENCOUNTER 2024-07-10 15:42 | Inpatient (IN) | payer MEDICAID ==
[~2024-07-10] VITALS: Ht 167.6 cm; Wt 74.9 kg
[~2024-07-10 15:42] MED LIST changes: -AMOX1TAB16 MT; +CIPR750T4 PO; +COLL30OI TP; +LINE600T14 PO; +MINE50OI TP
[2024-07-10 15:46] VITALS: O2SAT 99
[2024-07-10] MEDS ORDERED: ONDANSETRON HCL 4MG/2ML INJ IV ONE (16:00)
[2024-07-10] MEDS ORDERED: MORPHINE SULFATE 4 MG/ML INJ (FOR IV/IM USE) IV ONE (16:00)
[2024-07-10] MEDS ORDERED: TETANUS, DIPHTHERIA, PERTUSSIS VAC/PF 0.5ML (>10YR OLD) IM ONE (16:00)
[2024-07-10 16:36] LABS: BASOPHILS % 0.6 % (0.0-2.0); DIFFERENTIAL COMMENT 0; EOSINOPHILS % 1.7 % (0.0-5.0); HEMATOCRIT. 29.3 % (42.0-52.0); HEMOGLOBIN. 9.7 g/dL (14.0-18.0); LYMPHOCYTES % 31.4 % (20.0-50.0); MEAN CORPUSCULAR HEMOGLOBIN 26.2 pg (28.0-32.0); MEAN CORPUSCULAR VOLUME 79.2 fL (80.0-94.0); MEAN PLATELET VOLUME 7.2 fl (7.4-10.4); MONOCYTES % 5.8 % (2.0-8.0); NEUTROPHILS % 60.5 % (40.0-76.0); PLATELET 521 x1000/uL (130-400); WHITE BLOOD COUNT 6.9 x1000/uL (4.5-11.0)
[2024-07-10 16:42] LABS: CHLORIDE 101 mEq/L (98-107); POTASSIUM 4.7 mEq/L (3.5-5.1); SODIUM 130 mEq/L (136-145)
[2024-07-10 16:43] LABS: CARBON DIOXIDE 25 mEq/L (21-32)
[2024-07-10 16:44] LABS: CALCIUM 9.1 mg/dL (8.7-10.4)
[2024-07-10 16:48] LABS: PARTIAL THROMBOPLASTIN TIME 27.4 sec (23.4-31.0); PROTHROMBIN TIME 10.9 sec (9.6-11.0)
[2024-07-10 16:49] LABS: TROPONIN I HIGH SENSITIVITY 5 ng/L (3.0-53); UREA NITROGEN BLOOD 16 mg/dL (9-23)
[2024-07-10 16:54] LABS: GLUCOSE 470 mg/dL (70-105)
[2024-07-10] MEDS ORDERED: INSULIN REGULAR (HUMULIN R) 1000UNITS/10ML VIAL SUBCUT ONE (17:45)
[2024-07-10] MEDS: SODIUM CHLORIDE 0.9% 1,000 ML IV ONE ×2 (18:10→20:00)
[2024-07-10] MEDS: CEFAZOLIN 1000MG PREMIX 50 ML IV ONE (18:17)
[2024-07-10] MEDS: MORPHINE SULFATE 4 MG/ML INJ (FOR IV/IM USE) IV NR (18:39)
[2024-07-10] MEDS: ONDANSETRON HCL 4MG/2ML INJ IV NR (18:39)
[2024-07-10] MEDS: INSULIN REGULAR (HUMULIN R) 1000UNITS/10ML VIAL SUBCUT NR (19:05)
[2024-07-10] MEDS: TETANUS, DIPHTHERIA, PERTUSSIS VAC/PF 0.5ML (>10YR OLD) IM ONE (19:08)
[2024-07-10] MEDS ORDERED: ONDANSETRON HCL 4MG/2ML INJ IV PRN (23:45)
[2024-07-10] MEDS ORDERED: HYDROCODONE/ACETAMINOPHEN 5/325MG TABLET PO PRN (23:45)
[2024-07-10] MEDS ORDERED: ACETAMINOPHEN 325MG TABLET PO PRN (23:45)
[2024-07-10] MEDS ORDERED: GUAIFENESIN 200MG/10ML SUGAR FREE UDC PO PRN (23:45)
[2024-07-10] MEDS ORDERED: IPRATROPIUM/ALBUTEROL 0.5-3(2.5)MG/3ML NEB HHN PRN (23:45)
[2024-07-10] MEDS ORDERED: DEXTROSE 50% WATER 50ML SYRINGE IV PRN (23:45)
[2024-07-10] MEDS ORDERED: CLONIDINE 0.1MG TABLET PO PRN (23:45)
[2024-07-10] MEDS ORDERED: DOCUSATE SODIUM 100MG CAPSULE PO PRN (23:45)
[2024-07-11] MEDS: MORPHINE SULFATE 2 MG/ML INJ (NOT FOR IM USE) IV NR (00:44)
[2024-07-11 01:16] LABS: CHLORIDE 105 mEq/L (98-107); POTASSIUM 4.2 mEq/L (3.5-5.1); SODIUM 135 mEq/L (136-145)
[2024-07-11 01:17] LABS: CALCIUM 8.4 mg/dL (8.7-10.4); CARBON DIOXIDE 26 mEq/L (21-32)
[2024-07-11 01:22] LABS: CREATININE 0.7 mg/dL (0.6-1.3); UREA NITROGEN BLOOD 12 mg/dL (9-23)
[2024-07-11 01:24] LABS: CREATINE KINASE 45 IU/L (46-171)
[2024-07-11 01:25] LABS: GLUCOSE 180 mg/dL (70-105)
[2024-07-11] MEDS: BLOOD SUGAR DIAGNOSTIC STRIP TEST SCH (06:45)
[2024-07-11 06:49] LABS: ALBUMIN 3.3 g/dL (3.2-4.8); IRON 33 ug/dL (65-175)
[2024-07-11 06:50] LABS: TRIGLYCERIDE 136 mg/dL (0-150)
[2024-07-11 06:51] LABS: CREATINE KINASE 42 IU/L (46-171); LDL CHOLESTEROL 41 mg/dL (5-100)
[2024-07-11 06:52] LABS: CHOLESTEROL 87 mg/dL (<200); HDL CHOLESTEROL 28 mg/dL (>55); PHOSPHORUS 3.8 mg/dL (2.5-4.9); TOTAL IRON BINDING CAPACITY 258 ug/dl (250-425)
[2024-07-11 07:01] LABS: BASOPHILS % 0.9 % (0.0-2.0); DIFFERENTIAL COMMENT 0; EOSINOPHILS % 1.1 % (0.0-5.0); HEMATOCRIT. 26.9 % (42.0-52.0); HEMOGLOBIN. 8.9 g/dL (14.0-18.0); LYMPHOCYTES % 23.2 % (20.0-50.0); MEAN CORPUSCULAR HEMOGLOBIN 26.2 pg (28.0-32.0); MEAN CORPUSCULAR HGB CONC 33.2 g/dL (31.0-37.0); MEAN CORPUSCULAR VOLUME 78.9 fL (80.0-94.0); MEAN PLATELET VOLUME 7.9 fl (7.4-10.4); MONOCYTES % 6.1 % (2.0-8.0); NEUTROPHILS % 68.7 % (40.0-76.0); PLATELET 487 x1000/uL (130-400); RED CELL DISTRIBUTION WIDTH 17.9 % (11.6-14.6); WHITE BLOOD COUNT 9.8 x1000/uL (4.5-11.0)
[2024-07-11] MEDS: PANTOPRAZOLE SODIUM 40 MG/VIAL IV SCH (09:48)
[2024-07-11] MEDS: MAGNESIUM/ALUMINUM HYDROXIDE/SIMETHICONE 30ML UDC PO PRN (09:49)
[2024-07-11] MEDS: INSULIN LISPRO 100 UNITS/ML SUBCUT SCH (09:59)
[2024-07-11] MEDS: MORPHINE SULFATE 2 MG/ML INJ (NOT FOR IM USE) IV SCH (11:52)
[2024-07-11 12:00] VITALS: BP 120/87; PULSE 104; RESP 18; TEMP 36.114; O2SAT 99
[2024-07-11] MEDS: KETOROLAC 15MG/ML VIAL IV PRN (14:45)
[2024-07-11] MEDS: MAGNESIUM 2 G PREMIX 50 ML IV NR (14:49)
[2024-07-11 15:13] VITALS: BP 120/87; PULSE 103; RESP 18; TEMP 36.4736
[2024-07-11 16:00] VITALS: BP 135/75; PULSE 98; RESP 18; TEMP 36.3918; O2SAT 98
[2024-07-11 20:00] VITALS: BP 132/74; PULSE 86; RESP 20; TEMP 36.50292; O2SAT 99
[2024-07-12] VITALS: BP 142/86; PULSE 82; RESP 18; TEMP 37.11408; O2SAT 100
[2024-07-12 04:00] VITALS: BP 132/82; PULSE 78; RESP 20; TEMP 36.22512; O2SAT 98
[2024-07-12 08:00] VITALS: BP 133/72; PULSE 77; RESP 18; TEMP 36.50292
[2024-07-12] MEDS: LORAZEPAM 0.5MG TABLET PO PRN (10:13)
[2024-07-12 12:00] VITALS: BP 130/68; PULSE 71; RESP 20; TEMP 36.61404; O2SAT 97
[2024-07-12 16:00] VITALS: BP 131/72; PULSE 68; RESP 18; TEMP 36.55848; O2SAT 96
[2024-07-12] MEDS: INSULIN LISPRO 100 UNITS/ML SUBCUT SCH (16:56)
[2024-07-12] MEDS: BLOOD SUGAR DIAGNOSTIC STRIP TEST SCH (16:57)
[2024-07-12 20:00] VITALS: BP 133/80; PULSE 94; RESP 20; TEMP 36.44736; O2SAT 99
[2024-07-12] MEDS: INSULIN GLARGINE 100 UNITS/ML SUBCUT SCH (20:21)
[2024-07-12] MEDS: MAGNESIUM 2 G PREMIX 50 ML IV NR (22:39)
[2024-07-13] VITALS (7 sets, daily range): BP systolic 122–151; BP diastolic 75–91; PULSE 76–94; RESP 16–18; TEMP 36.3918–36.50292; O2SAT 96–99
[2024-07-13] MEDS: ACETAMINOPHEN 325MG TABLET PO PRN (09:03)
== END 2024-07-13 17:34 | disposition home health service (06) | DRG 813 ==
LOC: ER 15:42 → EDBEDREQ 21:23 → EDBEDREQTM 21:23 → 5WST 22:21 → 7EST 07-11 14:30
PROVIDERS: ADMIT Internal Medicine; ATTEND Internal Medicine
DX: T81.31XA Disruption of external operation (surgical) wound, not elsewhere classified, initial encounter (principal); D62 Acute posthemorrhagic anemia; E87.1 Hypo-osmolality and hyponatremia; E11.65 Type 2 diabetes mellitus with hyperglycemia; D75.839 Thrombocytosis, unspecified; E78.00 Pure hypercholesterolemia, unspecified; E83.42 Hypomagnesemia; I10 Essential (primary) hypertension; M54.9 Dorsalgia, unspecified; Y83.8 Other surgical procedures as the cause of abnormal reaction of the patient, or of later complication, without mention of misadventure at the time of the procedure; Z89.512 Acquired absence of left leg below knee; Z79.4 Long term (current) use of insulin; Z79.82 Long term (current) use of aspirin; Z79.899 Other long term (current) drug therapy; Y92.89 Other specified places as the place of occurrence of the external cause
CPT/HCPCS: 36415; 71045; 72128; 72131; 72192; 73560; 73590; 73700; 80048; 80061; 82040; 82550; 82962; 83036; 83540; 83550; 83735; 83880; 84100; 84145; 84443; 84484; 85025; 86850; 86900; 90715; 93005; 93970; 97166; 99285; J0690; J1815; J1885; J2270; J2405; J2470; J3475; J7030

== ENCOUNTER 2024-07-16 07:59 | Emergency (ER) | payer MEDICAID ==
[~2024-07-16] VITALS: Ht 162.6 cm; Wt 70.0 kg
[2024-07-16 08:01] VITALS: O2SAT 99
[2024-07-16] MEDS: ONDANSETRON HCL 4MG/2ML INJ IV STA (08:55)
[2024-07-16] MEDS: MORPHINE SULFATE 4 MG/ML INJ (FOR IV/IM USE) IV STA (08:55)
[2024-07-16 10:30] VITALS: BP 107/69; PULSE 89; RESP 16; TEMP 36.94740; O2SAT 95
[2024-07-16 10:31] VITALS: TEMP 98.1
[2024-07-16] MEDS: ACETAMINOPHEN 325MG TABLET PO ONE (10:31)
[2024-07-16] MEDS ORDERED: PIPERACILLIN/TAZO 3.375G/50ML 50 ML IV SCH (14:00)
== END 2024-07-16 14:38 | disposition short-term general hospital (02) ==
LOC: ER 07:59
DX: M79.605 Pain in left leg (principal); D64.9 Anemia, unspecified; E11.9 Type 2 diabetes mellitus without complications; E78.00 Pure hypercholesterolemia, unspecified; I10 Essential (primary) hypertension; Z98.890 Other specified postprocedural states; Z79.899 Other long term (current) drug therapy
CPT/HCPCS: 73590; 96374; 96375; 99284; J2405; J2543; J2270; Z7610 ×4; C1893